=== PATIENT | female | born 1965 | race Caucasian/White ===

== ENCOUNTER → 2016-10-21 | Outpatient (CLI) | payer MEDICAID | END | disposition home or self-care (01) | LOC: MAMMO 07:12 | DX: Z12.31 Encounter for screening mammogram for malignant neoplasm of breast (principal); K80.20 Calculus of gallbladder without cholecystitis without obstruction; K76.0 Fatty (change of) liver, not elsewhere classified; A15.9 Respiratory tuberculosis unspecified; R16.2 Hepatomegaly with splenomegaly, not elsewhere classified; R31.9 Hematuria, unspecified; R10.9 Unspecified abdominal pain | CPT/HCPCS: 71020; 76700; 76857; G0202 ==

== ENCOUNTER 2021-05-27 18:10 | Emergency (ER) | payer MEDICAID ==
[~2021-05-27] VITALS: Ht 152.4 cm; Wt 55.0 kg
[~2021-05-27 18:10] MED LIST: ASPI-1497 MT; IBUP-2030 MT; LIP40 MT; METF-416 MT; PREN-176 MT; QUET100T34 MT; SITA100T11 PO
[2021-05-27] MEDS ORDERED: MAGNESIUM/ALUMINUM HYDROXIDE/SIMETHICONE 30ML UDC PO ONE ×2 (18:30→23:00)
[2021-05-27] MEDS ORDERED: ONDANSETRON 4MG ODT PO ONE ×2 (18:30→23:00)
[2021-05-27 20:10] LABS: BASOPHILS % 0.4 % (0.0-2.0); HEMATOCRIT. 40.8 % (36.0-48.0); HEMOGLOBIN. 13.7 g/dL (12.0-16.0); LYMPHOCYTES % 29.1 % (20.0-50.0); MEAN CORPUSCULAR HEMOGLOBIN 28.2 pg (28.0-32.0); MEAN CORPUSCULAR VOLUME 84.2 fL (81.0-99.0); MEAN PLATELET VOLUME 8.8 fl (7.4-10.4); MONOCYTES % 5.7 % (2.0-8.0); NEUTROPHILS % 61.8 % (40.0-76.0); PLATELET 242 x1000/uL (130-400); RED BLOOD CELL COUNT 4.84 mill/uL (4.2-5.4)
[2021-05-27 20:22] LABS: CHLORIDE 105 mEq/L (98-107)
[2021-05-27 22:58] LABS: CLARITY URINE CLEAR (CLEAR); COLOR URINE YELLOW (YELLOW); KETONES URINE NEGATIVE (NEGATIVE); LEUKOCYTE ESTERASE URINE NEGATIVE (NEGATIVE); NITRITE URINE NEGATIVE (NEGATIVE); OCCULT BLOOD URINE TRACE (NEGATIVE); PROTEIN URINE NEGATIVE (NEGATIVE); SPECIFIC GRAVITY URINE 1.023 (1.005-1.030); UROBILINOGEN URINE 0.2 E.U./dL (0.2-1.0)
[2021-05-27 23:30] VITALS: BP 131/72
== END 2021-05-28 00:38 | disposition home or self-care (01) ==
LOC: ER 18:10
DX: R55 Syncope and collapse (principal); R53.1 Weakness; R07.89 Other chest pain; E11.9 Type 2 diabetes mellitus without complications; E78.00 Pure hypercholesterolemia, unspecified; Z79.899 Other long term (current) drug therapy; Z20.822 Contact with and (suspected) exposure to COVID-19
CPT/HCPCS: 36415; 71045; 80053; 81003; 82962; 83690; 83880; 84484; 85025; 87804; 93005; 99285; C9803; Q0162; U0003; U0005